=== PATIENT | female | born 1995 | race Caucasian/White ===

== ENCOUNTER → 2021-10-06 10:59 | Outpatient (CLI) | payer OTHER, SELFPAY ==
--- NOTE | 2021-10-06 11:01 | DI.US.S_ITS ---
PROCEDURE: US OB <= 14 WEEKS FETUS INDICATIONS: DATES OUTSIDE/PRIOR DATING DATA: Last menstrual period (LMP): 08/07/2021 LMP-based estimated date of delivery (JOSEPHINE): 05/14/2022 First dating scan (date and location): 10/06/2021 Estimated date of delivery (JOSEPHINE) from first dating scan: 05/19/2022. TECHNIQUE: Real-time scanning was performed of the fetus and maternal pelvic organs, with image documentation. Endovaginal scanning was also performed to better visualize the fetus and maternal ovaries. COMPARISON: None. FINDINGS: Embryo: Single intrauterine gestational sac is seen with fetus and yolk sac seen. heart rate is 171 beats per minute. [place]-rump length measures 1.5 cm. Estimated gestational age is 7 weeks, 6 days. Maternal organs: 1.4 cm corpus luteal cyst is seen in left ovary. 2.9 cm simple cyst is noted in right ovary. No solid appearing ovarian lesion. No ectopic gestational sac. IMPRESSION: 1. Single live intrauterine gestation with fetus and yolk sac seen. heart rate is 171 beats per minute. Estimated gestational age is 7 weeks, 6 days. 2. Corpus luteal cyst in left ovary and simple cyst in right ovary as above. We strive to produce accurate, complete, and clear reports of imaging services. To assist us in improving patient care, this report was composed using standard report templates and voice recognition software. Therefore, it may contain abnormal punctuation, insertions and/or omissions. Occasional wrong-word or sound-alike substitutions may occur. Though we review the report and make efforts to correct it, we do recommend that the report be read carefully in proper context to recognize any text inaccuracies. Dictated by: Keaton Cuenca M.D. on 10/06/2021 at 12:13 Approved by: Keaton Cuenca M.D. on 10/06/2021 at 12:15
[2021-10-06 14:06] LABS: Appearance Urine UA CLEAR; Bilirubin Urine UA NEGATIVE (NEGATIVE); Color Urine UA YELLOW; Glucose Urine UA NEGATIVE (Negative); Ketones Urine UA NEGATIVE (NEGATIVE); Leukocyte Esterase Urine UA NEGATIVE (NEGATIVE); Nitrite Urine UA NEGATIVE (Negative); Occult Blood Urine UA TRACE-LYSED (Negative); Protein Urine UA NEGATIVE (Negative); Urobilinogen Urine UA 0.2 E.U./dL (0.2)
[2021-10-06 14:41] LABS: Add Manual Diff / Slide Review NO; Basophils Absolute Auto 0 /uL (0-100); Basophils Percent Auto 0.2 % (0-2); Eosinophils Absolute Auto 100 /uL (0-450); Eosinophils Percent Auto 0.6 % (2-4); Hematocrit 37.5 % (36-46); Hemoglobin 12.2 g/dL (12.0-16.0); Lymphocytes Absolute Auto 2600 /uL (1100-4500); Lymphocytes Percent Auto 26.5 % (25-40); Mean Corpuscular HGB Conc 32.7 % (30-36); Mean Corpuscular Hemoglobin 26.3 PG (26-34); Mean Corpuscular Volume 80.6 fL (80-100); Monocytes Absolute Auto 500 /uL (0-900); Monocytes Percent Auto 4.9 % (3-14); Neutrophils Absolute Auto 6800 /uL (1500-7000); Neutrophils Percent Auto 67.8 % (50-75); Platelet Count 249 X10^3/uL (150-400); Red Blood Cell Count 4.65 X10^6/uL (4.0-5.2)
[2021-10-07 05:33] LABS: RPR Screen Non Reactive (Non Reactive)
[2021-10-07 09:27] LABS: Varicella IgG Antibody 1019 index (Immune >165)
[2021-10-07 15:37] LABS: Hepatitis B Surface Antigen NEGATIVE s/c (NEGATIVE); Rubella Antibody IgG 2.5 IU/mL (>15)
[2021-10-07 15:38] LABS: HIV 1 & 2 Ab/Ag 4th Gen Combo NEGATIVE (NEGATIVE); Hep C Virus Ab w/Reflex Quant NEGATIVE s/c (NEGATIVE)
== END ==
PROVIDERS: PCP Family Medicine; Referring Provider Family Medicine; Visit Provider Family Medicine
DX: Z36.87 Encounter for antenatal screening for uncertain dates (principal); O34.81 Maternal care for other abnormalities of pelvic organs, first trimester; N83.12 Corpus luteum cyst of left ovary; N83.291 Other ovarian cyst, right side; Z3A.01 Less than 8 weeks gestation of pregnancy
CPT/HCPCS: 36415; 76801; 76817; 80055; 81003; 86787; 86803; 86850; 86900; 86901; 87086; 87389

== ENCOUNTER → 2021-12-20 14:54 | Outpatient (CLI) | payer OTHER, SELFPAY ==
[2021-12-22 20:12] LABS: Calc Gestational Age Ultrasound (.); Inhibin A, Dimeric 74.44 pg/mL (.); Inhibin A, MoM 0.66 (.); Maternal Ethnicity Other (.); Maternal Weight 266 lbs (.); Number of Fetuses No (.); OSBR Risk 1 IN 10000 (.); Results Report (.); Test Results *Screen Negative* (.); hCG, MoM 0.36 (.); hCG, Serum 7429 mIU/mL (.)
== END ==
PROVIDERS: PCP Nurse Practitioner Family; Referring Provider Family Medicine; Visit Provider Family Medicine
DX: Z34.92 Encounter for supervision of normal pregnancy, unspecified, second trimester (principal); Z3A.18 18 weeks gestation of pregnancy
CPT/HCPCS: 36415; 82105; 82677; 84702; 86336

== ENCOUNTER → 2022-01-03 15:14 | Outpatient (CLI) | payer OTHER, SELFPAY ==
--- NOTE | 2022-01-03 15:16 | DI.US.S_ITS ---
PROCEDURE: US OB >= 14 WEEKS FETUS INDICATIONS: ANATOMY SCAN OUTSIDE/PRIOR DATING DATA: Last menstrual period (LMP): August 07, 2021 LMP-based estimated date of delivery (JOSEPHINE): May 14, 2022 First dating scan (date and location): October 16, 2021 Estimated date of delivery (JOSEPHINE) from first dating scan: May 19, 2022 The calculations are made using the ultrasound JOSEPHINE of May 19, 2022 TECHNIQUE: Real-time scanning was performed of the fetus, with image documentation and biometric measurements. Endovaginal scanning: Performed COMPARISON: [facility], OB <= 14 WEEKS FETUS, 10/06/2021, 11:12. FINDINGS: General: A single living intrauterine gestation is present. Presentation: Vertex Placenta: Placental position is anterior, without previa. Amniotic fluid index: 15.7 cm, normal range is 5-24 cm. Single deepest vertical pocket is 4.7 cm. heart rate: 158 beats per minute. Maternal cervical canal: Closed and 5.1 cm long. Normal lower limit is 2.5 cm. biometrics: Biparietal diameter: 21 weeks 6 days Head circumference: 21 weeks 1 day Abdominal circumference: 21 weeks 3 days Femur length: 22 weeks 4 days Clinically estimated gestational age: 20 weeks 4 days Composite gestational age from present scan: 21 weeks 5 days Estimated weight and percentile: 456 grams; 97th percentile Anatomic survey: Neuro: Ventricles are non-dilated at less than 10 mm. Cisterna magna is normal at 3-11 mm. Cerebellum is normal in size and morphology. Nuchal skin fold: Normal at less than 6 mm between 14-21 weeks gestational age. Face: Nose and lips, facial profile are normal. Spine: No evidence for spina bifida. Heart: 4-chambered heart is present, with normal ventricular outflow tracts. Diaphragm: Diaphragm is intact. Stomach: Left-sided stomach is present. Kidneys: No hydronephrosis. Normal is less than 5 mm in 2nd trimester, less than 7 mm in 3rd trimester. Cord: 3-vessel cord has orthotopic insertion. Bladder: Normal in size. Extremities: All 4 extremities identified. IMPRESSION: 1. Single living intrauterine . 2. Estimated weight 456 grams corresponding to the 97th percentile for gestational age concerning for macrosomia. 3. Normal amniotic fluid index 4. Normal anatomic survey. Dictated by: Camilla Hilliard MD, PhD on 01/03/2022 at 16:34 Approved by: Camilla Hilliard MD, PhD on 01/03/2022 at 16:36
== END ==
PROVIDERS: PCP Nurse Practitioner Family; Referring Provider Family Medicine; Visit Provider Family Medicine
DX: Z34.92 Encounter for supervision of normal pregnancy, unspecified, second trimester (principal); Z3A.21 21 weeks gestation of pregnancy
CPT/HCPCS: 76811

== ENCOUNTER → 2022-02-15 08:14 | Outpatient (CLI) | payer OTHER, SELFPAY ==
[2022-02-15 10:44] LABS: Hematocrit 34.7 % (36-46); Hemoglobin 11.7 g/dL (12.0-16.0)
[2022-02-15 10:58] LABS: GTT (PREG) 1 Hour PP 50gm Dose 103 mg/dL (76-139)
== END ==
PROVIDERS: PCP Nurse Practitioner Family; Referring Provider Family Medicine; Visit Provider Family Medicine
DX: Z34.02 Encounter for supervision of normal first pregnancy, second trimester (principal); Z3A.26 26 weeks gestation of pregnancy
CPT/HCPCS: 36415; 82950; 85014; 85018

== ENCOUNTER → 2022-03-24 15:50 | Outpatient (CLI) | payer OTHER, SELFPAY ==
--- NOTE | 2022-03-24 15:52 | DI.US.S_ITS ---
PROCEDURE: US OB FOLLOW UP INDICATIONS: MACROSOMIA OUTSIDE/PRIOR DATING DATA: Last menstrual period (LMP): 08/07/2021 LMP-based estimated date of delivery (JOSEPHINE): 05/14/2022. First dating scan (date and location): 10/06/2021. Estimated date of delivery (JOSEPHINE) from first dating scan: 05/19/2022. The calculations are made using the ultrasound JOSEPHINE of 05/19/2022. TECHNIQUE: Real-time scanning was performed of the fetus, with image documentation and biometric measurements. COMPARISON: [facility], OB <= 14 WEEKS FETUS, 10/06/2021, 11:12. [facility], OB >= 14 WEEKS FETUS, 01/03/2022, 16:23. FINDINGS: General: A single living intrauterine gestation is present. Presentation: Vertex. Placenta: Placental position is anterior , without previa. Amniotic fluid index: 25.7 cm, normal range is 5-24 cm. Single deepest vertical pocket is 7.7 cm. heart rate: 152 beats per minute. Maternal cervical canal: 5.1 cm long. Normal lower limit is 2.5 cm. biometrics: Biparietal diameter: 34 weeks 2 days Head circumference: 35 weeks Abdominal circumference: 34 weeks Femur length: 32 weeks Clinically estimated gestational age: 32 weeks Composite gestational age from present scan: 33 weeks 6 days Estimated weight and percentile: 2224 g; 86 percentile Other: Not applicable. IMPRESSION: 1. Single living IUP redemonstrated and interval growth is upper limits of normal. 2. Amniotic fluid index of 25.7 cm which is greater than the 90th percentile for age. We strive to produce accurate, complete, and clear reports of imaging services. To assist us in improving patient care, this report was composed using standard report templates and voice recognition software. Therefore, it may contain abnormal punctuation, insertions and/or omissions. Occasional wrong-word or sound-alike substitutions may occur. Though we review the report and make efforts to correct it, we do recommend that the report be read carefully in proper context to recognize any text inaccuracies. Dictated by: Robert DENISE Interpreted: Nish Osuna MD on 03/24/2022 at 16:49 Transcribed by: SHAYAN on 03/24/2022 at 16:51 Approved by: Nish Osuna M.D. on 03/24/2022 at 21:33
== END ==
PROVIDERS: PCP Nurse Practitioner Family; Referring Provider Family Medicine; Visit Provider Family Medicine
DX: O36.63X0 Maternal care for excessive fetal growth, third trimester, not applicable or unspecified (principal); Z3A.32 32 weeks gestation of pregnancy
CPT/HCPCS: 76816

== ENCOUNTER 2022-03-29 15:56 | Outpatient (CLI) | payer OTHER, SELFPAY ==
--- NOTE | 2022-03-29 16:02 | DI.US.S_ITS ---
PROCEDURE: US OB BIOPHYSICAL PROFILE INDICATIONS: BPP OUTSIDE/PRIOR DATING DATA: Last menstrual period (LMP): 08/07/2021. LMP-based estimated date of delivery (JOSEPHINE): 05/14/2022. First dating scan (date and location): 10/06/2021. Estimated date of delivery (JOSEPHINE) from first dating scan: 05/19/2022. TECHNIQUE: Real-time scanning was performed of the fetus for biophysical profile, with image documentation. Endovaginal scanning: Not performed COMPARISON: None. FINDINGS: General: A single living intrauterine gestation is present. Presentation: Vertex. Placenta: Placental position is anterior , without previa. Amniotic fluid index: 20.7 cm, normal range is 5-24 cm. Single deepest vertical pocket is 7.2 cm. heart rate: 162 beats per minute. Maternal cervical canal: Not well visualized estimated gestational age: 32 weeks 5 days Biophysical profile: Tone: 2 points. Movement: 2 points. Respiration: 2 points. Largest pocket of fluid: 2 points. IMPRESSION: 1. Single living intrauterine in vertex presentation. 2. Biophysical profile score 8/8. 3. Normal amniotic fluid index of 20.7. We strive to produce accurate, complete, and clear reports of imaging services. To assist us in improving patient care, this report was composed using standard report templates and voice recognition software. Therefore, it may contain abnormal punctuation, insertions and/or omissions. Occasional wrong-word or sound-alike substitutions may occur. Though we review the report and make efforts to correct it, we do recommend that the report be read carefully in proper context to recognize any text inaccuracies. Dictated by: Nish Osuna M.D. on 03/29/2022 at 17:28 Approved by: Nish Osuna M.D. on 03/29/2022 at 17:31
--- NOTE | 2022-03-29 18:16 | PM.OBTRLD ---
Visit Information Visit Information Date of evaluation: 03/29/22 Primary OB Provider: Benita Nickerson Reason for Evaluation: Yes non-stress test non-stress test reason: other (polyhydramnios) Vital Signs Vital Signs: Temperature 36.3? blood pressure 109/60 heart rate 74 PFSH Medical History Nystagmus Family History Father Fatty liver Grandfather Leukemia Melanoma Social History marital status: number of children: 0 household members: spouse lives independently: Yes housing: house pets and animals: Yes (dogs, aware of Toxoplasmosisi) education level: college occupational status: employed current occupational exposures/hazards: No special rylan needs: No seatbelt use: always water heater temp set < 120 deg: Yes working smoke detector in home: Yes fire extinguisher in home: Yes carbon monox detector in home: Yes firearms in home: No do you feel safe at home: Yes Smoking Status: Never smoker second hand exposure: No alcohol intake: former substance use type: does not use during the past year weight has: remained stable well-balanced diet: daily or most days daily servings fruits/ve-4 caffeine: No Type(s) of exercise: walking, regular exercise and weight lifting frequency: 3-4 times per week Evaluation Evaluation Baseline heart rate: 150 Variability: Moderate (11-25) monitor accelerations: Present Monitor Decelerations: Absent Contraction Frequency (minutes): 3 Uterine Contraction Intensity: Mild Status: Category l Diagnosis, Plan/Disposition Final Diagnosis (1) Polyhydramnios affecting in third trimester: Status: Acute (2) 32 weeks gestation of : Status: Acute Plan/Disposition Plan: 26-year-old at 32 weeks gestation with incidental mild polyhydramnios noted on growth ultrasound (TAVARES of 25.7). No known gestational diabetes, 1 hour GTT was 103. NST reactive. BPP 8/8 with TAVARES of 20.7 today. She was having mild contractions every 2-3 minutes on the monitor though feeling none of them. Cervical length 5.1 cm. Follow-up in clinic as scheduled. Since TAVARES has normalized, no need for continued testing. OB Disposition: home
== END 2022-03-29 17:50 | disposition home or self-care (01) ==
LOC: OB 03-31 08:15
PROVIDERS: PCP Nurse Practitioner Family; Referring Provider Family Medicine; Visit Provider Family Medicine
DX: O40.3XX0 Polyhydramnios, third trimester, not applicable or unspecified (principal); Z3A.32 32 weeks gestation of pregnancy
CPT/HCPCS: 59025; 76819; G0378; G0379

== ENCOUNTER → 2022-04-25 15:22 | Outpatient (CLI) | payer OTHER, SELFPAY ==
[2022-04-26 14:04] LABS: Strep Grp B PCR NEG for Grp B Strep
== END ==
PROVIDERS: PCP Nurse Practitioner Family; Visit Provider Family Medicine
DX: Z34.93 Encounter for supervision of normal pregnancy, unspecified, third trimester (principal); Z3A.36 36 weeks gestation of pregnancy
CPT/HCPCS: 87653

== ENCOUNTER → 2022-04-25 15:46 | Outpatient (CLI) | payer OTHER, SELFPAY ==
--- NOTE | 2022-04-25 15:47 | DI.US.S_ITS ---
PROCEDURE: US OB LIMITED INDICATIONS: f/u growth/macrosomia OUTSIDE/PRIOR DATING DATA: Last menstrual period (LMP): 08/07/2021. LMP-based estimated date of delivery (JOSEPHINE): 05/14/2022. First dating scan (date and location): 10/06/2021. Estimated date of delivery (JOSEPHINE) from first dating scan: 05/19/2022. TECHNIQUE: Real-time scanning was performed of the fetus, with image documentation. COMPARISON: None. FINDINGS: A single living intrauterine gestation is present. Presentation: Vertex. Placenta: Placental position is anterior, without previa. Amniotic fluid index: 28.7 cm, normal range is 5-24 cm. Single deepest vertical pocket is 8.7 cm. heart rate: 152 beats per minute. Maternal cervical canal: 5.1 cm long. Normal lower limit is 2.5 cm. BPD: 9.2 cm, 37 week 3 day HC: 33.6 cm, 38 week 3 day AC: 33.9 cm, 37 week 6 day FL: 6.8 cm, 35 week 1 day EFW: 3143 g, 71st percentile Composite estimated gestational age: 37 week 2 day Estimated gestational age from initial scan: 36 week 4 day. IMPRESSION: 1. Single live intrauterine consistent with 37 week 2 day gestation. 2. Polyhydramnios. Amniotic fluid index 28.7 cm Approved by: Glenn Burnette M.D. on 04/25/2022 at 16:51
== END ==
PROVIDERS: PCP Nurse Practitioner Family; Referring Provider Family Medicine; Visit Provider Family Medicine
DX: Z36.88 Encounter for antenatal screening for fetal macrosomia (principal); O40.3XX0 Polyhydramnios, third trimester, not applicable or unspecified; Z3A.37 37 weeks gestation of pregnancy
CPT/HCPCS: 76816; 87653

== ENCOUNTER 2022-04-28 15:02 | Outpatient (CLI) | payer OTHER, SELFPAY ==
--- NOTE | 2022-04-28 15:39 | P.TNLD_ITS ---
Visit Information Visit Information Date of evaluation: 04/28/22 Primary OB Provider: Benita Nickerson Reason for Evaluation: Yes non-stress test non-stress test reason: other (Idiopathic polyhydramnios with TAVARES of 28) Vital Signs Vital Signs: Temperature 36.0? blood pressure 141/90 heart rate 81, repeat blood pressure 135/81 with heart rate of 83 PFSH Medical History Nystagmus Family History Father Fatty liver Grandfather Leukemia Melanoma Social History marital status: number of children: 0 household members: spouse lives independently: Yes housing: house pets and animals: Yes (dogs, aware of Toxoplasmosisi) education level: college occupational status: employed current occupational exposures/hazards: No special rylan needs: No seatbelt use: always water heater temp set < 120 deg: Yes working smoke detector in home: Yes fire extinguisher in home: Yes carbon monox detector in home: Yes firearms in home: No do you feel safe at home: Yes Smoking Status: Never smoker second hand exposure: No alcohol intake: former substance use type: does not use during the past year weight has: remained stable well-balanced diet: daily or most days daily servings fruits/ve-4 caffeine: No Type(s) of exercise: walking, regular exercise and weight lifting frequency: 3-4 times per week Evaluation Evaluation Baseline heart rate: 140 Variability: Moderate (11-25) monitor accelerations: Present Monitor Decelerations: Absent Category of Tracing: Reactive Diagnosis, Plan/Disposition Final Diagnosis (1) 36 weeks gestation of : Status: Acute (2) Polyhydramnios: Status: Acute Plan/Disposition Plan: 26-year-old at 36 weeks gestation with idiopathic polyhydramnios with TAVARES of 28. No gestational diabetes. Last estimated weight at the seventy- first percentile this week. NST reactive. Will continue monitoring with weekly NST and TAVARES. OB Disposition: home
== END 2022-04-28 15:50 | disposition home or self-care (01) ==
LOC: LABOR 15:16 → OB 05-05 10:07
PROVIDERS: PCP Nurse Practitioner Family; Referring Provider Family Medicine; Visit Provider Family Medicine
DX: O40.3XX0 Polyhydramnios, third trimester, not applicable or unspecified (principal); Z3A.36 36 weeks gestation of pregnancy
CPT/HCPCS: 59025; G0378; G0379

== ENCOUNTER 2022-05-05 14:53 | Outpatient (CLI) | payer OTHER, SELFPAY ==
--- NOTE | 2022-05-05 16:15 | PM.OBTRLD ---
Visit Information Visit Information Date of evaluation: 05/05/22 Primary OB Provider: Benita Nickerson Reason for Evaluation: Yes non-stress test non-stress test reason: other (Polyhydramnios) Vital Signs Vital Signs: Temperature 35.8? blood pressure 124/71 rate 74 PFSH Medical History Nystagmus Family History Father Fatty liver Grandfather Leukemia Melanoma Social History marital status: number of children: 0 household members: spouse lives independently: Yes housing: house pets and animals: Yes (dogs, aware of Toxoplasmosisi) education level: college occupational status: employed current occupational exposures/hazards: No special rylan needs: No seatbelt use: always water heater temp set < 120 deg: Yes working smoke detector in home: Yes fire extinguisher in home: Yes carbon monox detector in home: Yes firearms in home: No do you feel safe at home: Yes Smoking Status: Never smoker second hand exposure: No alcohol intake: former substance use type: does not use during the past year weight has: remained stable well-balanced diet: daily or most days daily servings fruits/ve-4 caffeine: No Type(s) of exercise: walking, regular exercise and weight lifting frequency: 3-4 times per week Evaluation Evaluation Baseline heart rate: 130 Variability: Moderate (11-25) monitor accelerations: Present Monitor Decelerations: Absent Contraction Frequency (minutes): 4 Uterine Contraction Intensity: Mild Category of Tracing: Reactive Diagnosis, Plan/Disposition Final Diagnosis (1) Polyhydramnios: Status: Acute (2) 37 weeks gestation of : Status: Acute Plan/Disposition Plan: 26-year-old at 37 weeks gestation with mild polyhydramnios. NST reactive. TAVARES to follow NST. Will continue weekly NST and TAVARES.
== END 2022-05-05 15:50 | disposition home or self-care (01) ==
LOC: LABOR 15:53 → OB 05-10 14:14
PROVIDERS: PCP Nurse Practitioner Family; Referring Provider Family Medicine; Visit Provider Family Medicine
DX: O40.3XX0 Polyhydramnios, third trimester, not applicable or unspecified (principal); Z3A.37 37 weeks gestation of pregnancy
CPT/HCPCS: 59025; 76815; G0378; G0379

== ENCOUNTER → 2022-05-05 16:49 | Outpatient (CLI) | payer OTHER, SELFPAY ==
--- NOTE | 2022-05-05 16:50 | DI.US.S_ITS ---
PROCEDURE: US OB LIMITED INDICATIONS: TAVARES OUTSIDE/PRIOR DATING DATA: Last menstrual period (LMP): 08/07/2021. LMP-based estimated date of delivery (JOSEPHINE): 05/14/2022. First dating scan (date and location): 10/06/2021. Estimated date of delivery (JOSEPHINE) from first dating scan: 05/19/2022. TECHNIQUE: Real-time scanning was performed of the fetus, with image documentation. COMPARISON: [facility], OB LIMITED, 04/25/2022, 16:06. FINDINGS: A single living intrauterine gestation is present. Presentation: Vertex. Placenta: Placental position is anterior, without previa. Amniotic fluid index: 16.9 cm, normal range is 5-24 cm. Single deepest vertical pocket is 5.7 cm. heart rate: 144 beats per minute. Maternal cervical canal: Not well seen Estimated gestational age from initial scan: 38 weeks 0 days. IMPRESSION: Single live intrauterine with ultrasound gestational age today of 30 weeks 0 days. TAVARES is within normal limits. Dictated by: Clary Rahman M.D. on 05/06/2022 at 11:11 Approved by: Clary Rahman M.D. on 05/06/2022 at 11:13
== END ==
PROVIDERS: PCP Nurse Practitioner Family; Referring Provider Family Medicine; Visit Provider Family Medicine
DX: O40.3XX0 Polyhydramnios, third trimester, not applicable or unspecified (principal); Z3A.30 30 weeks gestation of pregnancy
CPT/HCPCS: 76815

== ENCOUNTER → 2022-05-09 13:27 | Outpatient (CLI) | payer OTHER, SELFPAY ==
--- NOTE | 2022-05-09 13:28 | DI.US.S_ITS ---
PROCEDURE: US OB LIMITED INDICATIONS: TAVARES OUTSIDE/PRIOR DATING DATA: Last menstrual period (LMP): 08/07/2021. LMP-based estimated date of delivery (JOSEPHINE): 05/14/2022. First dating scan (date and location): 10/06/2021. Estimated date of delivery (JOSEPHINE) from first dating scan: 05/19/2022. TECHNIQUE: Real-time scanning was performed of the fetus, with image documentation and biometric measurements. Biophysical profile was also obtained. Endovaginal scanning: No COMPARISON: [facility], OB LIMITED, 05/05/2022, 16:55. FINDINGS: General: A single living intrauterine gestation is present. Presentation: Vertex. Placenta: Placental position is anterior , without previa. Amniotic fluid index: 22.7 cm heart rate: 140 beats per minute. IMPRESSION: 1. Single living intrauterine gestation. 2. Polyhydramnios. We strive to produce accurate, complete, and clear reports of imaging services. To assist us in improving patient care, this report was composed using standard report templates and voice recognition software. Therefore, it may contain abnormal punctuation, insertions and/or omissions. Occasional wrong-word or sound-alike substitutions may occur. Though we review the report and make efforts to correct it, we do recommend that the report be read carefully in proper context to recognize any text inaccuracies. Dictated by: Marlen Mena M.D. on 05/09/2022 at 14:21 Transcribed by: STEPHAN on 05/09/2022 at 14:23 Approved by: Marlen Mena M.D. on 05/09/2022 at 17:02
== END ==
PROVIDERS: PCP Nurse Practitioner Family; Referring Provider Family Medicine; Visit Provider Family Medicine
DX: Z3A.38 38 weeks gestation of pregnancy (principal); O40.3XX0 Polyhydramnios, third trimester, not applicable or unspecified; Z36.89 Encounter for other specified antenatal screening
CPT/HCPCS: 76815; 76819

== ENCOUNTER 2022-05-12 16:12 | Outpatient (CLI) | payer OTHER, SELFPAY ==
--- NOTE | 2022-05-12 17:14 | PM.OBTRLD ---
Visit Information Visit Information Date of evaluation: 05/12/22 Primary OB Provider: Benita Nickerson Reason for Evaluation: Yes non-stress test non-stress test reason: other (Polyhydramnios) Vital Signs Vital Signs: Temperature 36.1 blood pressure 136/93 heart rate 82 repeat blood pressure 124/81 heart rate 80 Per RN, initial blood pressure was taken with the wrong size cuff [facility] Medical History Nystagmus Family History Father Fatty liver Grandfather Leukemia Melanoma Social History marital status: number of children: 0 household members: spouse lives independently: Yes housing: house pets and animals: Yes (dogs, aware of Toxoplasmosisi) education level: college occupational status: employed current occupational exposures/hazards: No special rylan needs: No seatbelt use: always water heater temp set < 120 deg: Yes working smoke detector in home: Yes fire extinguisher in home: Yes carbon monox detector in home: Yes firearms in home: No do you feel safe at home: Yes Smoking Status: Never smoker second hand exposure: No alcohol intake: former substance use type: does not use during the past year weight has: remained stable well-balanced diet: daily or most days daily servings fruits/ve-4 caffeine: No Type(s) of exercise: walking, regular exercise and weight lifting frequency: 3-4 times per week Evaluation Evaluation Baseline heart rate: 130 Variability: Moderate (11-25) monitor accelerations: Present Monitor Decelerations: Absent Uterine Contraction Intensity: Mild Category of Tracing: Reactive Diagnosis, Plan/Disposition Final Diagnosis (1) 38 weeks gestation of : Status: Acute (2) Polyhydramnios: Status: Acute Plan/Disposition Plan: 26-year-old at 38 weeks and 4 days gestation here for NST due to polyhydramnios. TAVARES has been up and down each week, some weeks abnormal and others normal. Last TAVARES was 22.7. Will continue weekly NST and TAVARES. OB Disposition: home
== END 2022-05-12 17:00 | disposition home or self-care (01) ==
LOC: LABOR 17:39 → OB 05-17 13:01
PROVIDERS: PCP Nurse Practitioner Family; Referring Provider Family Medicine; Visit Provider Family Medicine
DX: O40.3XX0 Polyhydramnios, third trimester, not applicable or unspecified (principal); Z3A.38 38 weeks gestation of pregnancy
CPT/HCPCS: 59025; G0378; G0379

== ENCOUNTER 2022-05-16 15:28 | Outpatient (CLI) | payer OTHER, SELFPAY ==
[2022-05-16 17:13] LABS: Add Manual Diff / Slide Review NO; Basophils Absolute Auto 0 /uL (0-100); Basophils Percent Auto 0.1 % (0-2); Eosinophils Absolute Auto 0 /uL (0-450); Eosinophils Percent Auto 0.3 % (2-4); Hematocrit 37.5 % (36-46); Hemoglobin 12.5 g/dL (12.0-16.0); Lymphocytes Absolute Auto 2400 /uL (1100-4500); Mean Corpuscular HGB Conc 33.2 % (30-36); Mean Corpuscular Hemoglobin 26.5 PG (26-34); Mean Corpuscular Volume 79.8 fL (80-100); Monocytes Absolute Auto 600 /uL (0-900); Monocytes Percent Auto 5.7 % (3-14); Neutrophils Absolute Auto 7800 /uL (1500-7000); Neutrophils Percent Auto 71.9 % (50-75); Platelet Count 192 X10^3/uL (150-400); Red Cell Distribution Width 15.5 % (11.6-14.8); White Blood Cell Count 10.8 X10^3/uL (4.5-11.0)
--- NOTE | 2022-05-16 17:25 | PM.OBTRLD ---
Visit Information Visit Information Date of evaluation: 05/16/22 Primary OB Provider: Benita Nickerson Reason for Evaluation: Yes non-stress test non-stress test reason: hypertension/pre-eclampsia Comments/Additional reasons for admission: 26 year at 39 weeks and 1 day sent to the center for serial blood pressures and labs due to elevated blood pressure. Denies headaches vision changes, right upper quadrant pain or edema. Vital Signs Vital Signs: Temperature 36.3? blood pressure 128/79 heart rate 77, blood pressure 127/74 heart rate 77, blood pressure 135/74 heart rate 73 [facility] Medical History Nystagmus Family History Father Fatty liver Grandfather Leukemia Melanoma Social History marital status: number of children: 0 household members: spouse lives independently: Yes housing: house pets and animals: Yes (dogs, aware of Toxoplasmosisi) education level: college occupational status: employed current occupational exposures/hazards: No special rylan needs: No seatbelt use: always water heater temp set < 120 deg: Yes working smoke detector in home: Yes fire extinguisher in home: Yes carbon monox detector in home: Yes firearms in home: No do you feel safe at home: Yes Smoking Status: Never smoker second hand exposure: No alcohol intake: former substance use type: does not use during the past year weight has: remained stable well-balanced diet: daily or most days daily servings fruits/ve-4 caffeine: No Type(s) of exercise: walking, regular exercise and weight lifting frequency: 3-4 times per week Objective Labs Result Diagrams: 05/16/22 16:15 05/16/22 16:15 Evaluation Evaluation Baseline heart rate: 130 Variability: Moderate (11-25) monitor accelerations: Present Monitor Decelerations: Absent Category of Tracing: Reactive Diagnosis, Plan/Disposition Final Diagnosis (1) 39 weeks gestation of : Status: Acute Plan/Disposition Plan: 26-year-old at 39 weeks and 1 day gestation. She has been followed for waxing and waning polyhydramnios, last TAVARES was high normal. Today blood pressures were elevated in clinic then normal in the center. Labs overall reassuring with normal CBC and CMP however mildly elevated protein creatinine ratio at 0.33. She is scheduled for induction in 2 days and well-versed in the symptoms of preeclampsia. Will plan for induction in 2 days though she will return sooner if needed. OB Disposition: home
[2022-05-16 17:50] LABS: Alanine Aminotransferase 18 IU/L (<35); Albumin 3.5 g/dL (3.5-5.0); Albumin Globulin Ratio 1.1 (1.0-2.8); Alkaline Phosphatase 143 U/L (38-126); Aspartate Aminotransferase 24 IU/L (14-36); Bilirubin Total 0.2 mg/dL (0.2-1.3); Blood Urea Nitrogen 13 mg/dL (7-17); Calcium 8.8 mg/dL (8.4-10.2); Carbon Dioxide 19 mmol/L (22-32); Chloride 104 mmol/L (98-107); Estimated Glomerular Filt Rate > 60 mL/min (>60); Globulin 3.1 g/dL (1.7-4.1); Glucose 80 mg/dL (70-100); HEMOLYSIS < 15 (0-50); Sodium 133 mmol/L (137-145); Total Protein 6.6 g/dL (6.3-8.2)
[2022-05-16 17:51] LABS: Creatinine Urine Random 56.3 mg/dL; Protein (Total) Urine Random 19 mg/dL (0-12); Protein Creatinine Ratio Urine 0.33 GRAM/24H
== END 2022-05-16 18:00 | disposition home or self-care (01) ==
LOC: LABOR 18:34 → OB 05-19 11:26
PROVIDERS: PCP Nurse Practitioner Family; Referring Provider Family Medicine; Visit Provider Family Medicine
DX: O26.893 Other specified pregnancy related conditions, third trimester (principal); R03.0 Elevated blood-pressure reading, without diagnosis of hypertension; Z3A.39 39 weeks gestation of pregnancy
CPT/HCPCS: 59025; 59050; 80053; 82570; 84156; 85025; G0378; G0379

== ENCOUNTER 2022-05-18 19:08 | Observation (INO) | payer OTHER, SELFPAY ==
[2022-05-18 21:19] LABS: Add Manual Diff / Slide Review NO; Basophils Absolute Auto 0 /uL (0-100); Basophils Percent Auto 0.2 % (0-2); Eosinophils Absolute Auto 0 /uL (0-450); Eosinophils Percent Auto 0.2 % (2-4); Hematocrit 37.6 % (36-46); Hemoglobin 12.2 g/dL (12.0-16.0); Lymphocytes Absolute Auto 2700 /uL (1100-4500); Lymphocytes Percent Auto 21.5 % (25-40); Mean Corpuscular HGB Conc 32.5 % (30-36); Monocytes Absolute Auto 800 /uL (0-900); Neutrophils Absolute Auto 9000 /uL (1500-7000); Neutrophils Percent Auto 72.1 % (50-75); Platelet Count 193 X10^3/uL (150-400); Red Cell Distribution Width 15.4 % (11.6-14.8); White Blood Cell Count 12.5 X10^3/uL (4.5-11.0)
[2022-05-18 21:36] LABS: COVID19 -Nasal RAPID Negative (Negative)
== END 2022-05-18 23:00 | disposition home or self-care (01) ==
LOC: LABOR 19:12
PROVIDERS: Admitting Provider Family Medicine; PCP Nurse Practitioner Family; Referring Provider Family Medicine; Visit Provider Family Medicine
DX: O13.3 Gestational [pregnancy-induced] hypertension without significant proteinuria, third trimester (principal); O40.3XX0 Polyhydramnios, third trimester, not applicable or unspecified; Z3A.39 39 weeks gestation of pregnancy; Z20.822 Contact with and (suspected) exposure to COVID-19
CPT/HCPCS: 59025; 85025; 86850; 86900; 86901; 87635; C9803; G0378; G0379

== ENCOUNTER 2022-05-19 12:05 | Inpatient (IN) | payer OTHER, SELFPAY ==
--- NOTE | 2022-05-19 13:11 | P.HPOB_ITS ---
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 had been uncomplicated until ultrasound at 34 weeks done for growth was significant for TAVARES of 25.7 with EFW 86%. 1 hr GTT was normal at 26 weeks, reassuring against GDM. She had weekly ultrasounds after 34 weeks, some with mild polyhydramnios and some normal. Blood pressures this last week were elevated with normal CBC and CMP though urine protein creatinine level of 0.33. She has been without edema, BELLE, RUQ pain or vision changes. She came in last night for Cervical ripening however was sent home due to other events in the center. Today she feels well. Denies contractions, leaking or bleeding and reports good movement. care: good care, initiated at week # (10), number of visits (13) and pounds weight gain (5) Dating criteria OB: based on 1st trimester US only Ultrasounds: normal 1st trimester US and normal mid trimester US Obstetrical complications: gestational hypertension Medical complications OB: none Preadmission Labs Last OB Lab Results: Blood Type A Positive 05/18/22 20:45 Antibody Screen Negative 05/18/22 20:45 Hematocrit 37.6 % (36-46) 05/18/22 20:45 Hemoglobin 12.2 g/dL (12.0-16.0) 05/18/22 20:45 Hepatitis B Surface Antigen Negative s/c (NEGATIVE) 10/06/21 12 :34 Hepatitis C Antibody Negative s/c (NEGATIVE) 10/06/21 12:34 Rubella Antibody 2.5 IU/mL (>15) L 10/06/21 12:34 Varicella-Zoster IgG Antibody 1019 index (Immune >165) 10/06/21 12:34 Glucose 1 Hour 103 mg/dL (76-139) 02/15/22 09:59 Group B Streptococcus (PCR) Neg for grp b strep 04/25/22 15:22 -: Urine: negative Genetic Screens: Quad screen: Normal External Labs -: Urine: negative Evaluation Evaluation Baseline heart rate: 150 Variability: Moderate (11-25) monitor accelerations: Present Monitor Decelerations: Absent Category of Tracing: Reactive Dilation: 1-2 cm Effacement: 60-70% station: -2 Position of cervix: posterior Consistency: soft Cuevas score: 6 PFSH Medical History Nystagmus Family History Father Fatty liver Grandfather Leukemia Melanoma Social History marital status: number of children: 0 household members: spouse lives independently: Yes housing: house pets and animals: Yes (dogs, aware of Toxoplasmosisi) education level: college occupational status: employed current occupational exposures/hazards: No special rylan needs: No seatbelt use: always water heater temp set < 120 deg: Yes working smoke detector in home: Yes fire extinguisher in home: Yes carbon monox detector in home: Yes firearms in home: No do you feel safe at home: Yes Smoking Status: Never smoker second hand exposure: No alcohol intake: former substance use type: does not use during the past year weight has: remained stable well-balanced diet: daily or most days daily servings fruits/ve-4 caffeine: No Type(s) of exercise: walking, regular exercise and weight lifting frequency: 3-4 times per week Meds Home Medications and Allergies Home Medications Medication Instructions Recorded Confirmed Type prenat.vits,raya,ssm-mjns-hnhor 1 tab PO DAILY 10/11/21 05/19/22 History double electric breast pump and #1 ea 05/11/22 05/19/22 Rx supplies Allergies Allergy/AdvReac Type Severity Reaction Status Date / Time No Known Drug Allergies Allergy Verified 05/16/22 14:54 Review of Systems Review of Systems ROS: Yes All systems reviewed with the patient and are negative except as otherwise documented OB Exam Narrative Exam Narrative: Temperature 36.2? blood pressure 140/72 heart rate 91 repeat blood pressure 133/84 HENMT Head: normal to inspection Eyes General: appearance normal, both eyes and all related structures Resp Effort & Inspection: normal respiratory effort Auscultation: clear to auscultation bilaterally Cardio Rate: regular rate Rhythm: regular rhythm Extremities Lower extremity: Yes normal to inspection; No edema Presentation: vertex Estimated Weight (lbs): 8 Assessment and Plan Assessment and Plan Assessment and Plan narrative: 26-year-old at 39 weeks and 4 days gestation for intermittently mildly elevated blood pressures, mildly elevated protein creatinine ratio of 0.33 as well as waxing and waning polyhydramnios. No known gestational diabetes this with normal 1 hour GTT. She is without symptoms of preeclampsia and blood pressure normal range today without medication. Last estimated weight was at the 86th percentile at 34 weeks. Cuevas score of 6. Plan Cervidil per protocol, reassess need for Pitocin in 12 hours unless she goes into labor spontaneously Epidural upon request Anticipate
[2022-05-19] MEDS: DINOPROSTONE VAG (CERVIDIL) 10 MG VAG (14:15)
[2022-05-19 14:48] VITALS: BP 134/84
--- NOTE | 2022-05-19 20:54 | PM.OBPNLAB ---
Date/Time Date Patient Seen: 05/19/22 Time Patient Seen: 20:40 Pain Control Pain control: tolerating well Comments: She can feel contractions but denies pain. Contractions Monitor mode: External Contraction frequency (min): 6 Status status: Category l Heart Rate Baseline: 140 Monitor Accelerations: Present Monitor Decelerations: Absent Monitor Variability: Moderate Assessment and Plan Assessment: induction ongoing Plan: continuous present management Comments: 26-year-old at 39 weeks and 4 days gestation undergoing induction for intermittently mildly elevated blood pressures and mildly elevated protein creatinine ratio of 0.33 concerning for pre-eclampsia without severe features. Cervidil was placed at 2 PM. She is doris irregularly though not painfully. Plan to remove Cervidil at 2 AM unless removal is indicated soon. Will plan to start pitocin at 6 AM.
[2022-05-20] MEDS: OXYTOCIN PREMIX 30 UNIT/500 ML PLAST..BAG IV (05:53)
--- NOTE | 2022-05-20 06:11 | PM.OBPNLAB ---
Date/Time Date Patient Seen: 05/20/22 Time Patient Seen: 05:50 Pain Control Pain control: tolerating well Comments: Cervidil removed at 2 AM. She can feel contractions but is not uncomfortable. Pelvic Exam Dilation (cm): 3 Effacement (%): 80 station: -2 Amniotic membrane status: Intact Contractions Monitor mode: External Contraction pattern: Irregular Status status: Category l Heart Rate Baseline: 130 Monitor Accelerations: Present Monitor Decelerations: Absent Monitor Variability: Moderate Assessment and Plan Assessment: induction ongoing Comments: Cervidal removed after 12 hours, Cuevas score now 8. Will begin pitocin.
[2022-05-20] MEDS: LACTATED RINGERS 1,000 ML 100 ML IV ×2 (12:00→17:25)
--- NOTE | 2022-05-20 13:24 | PM.OBPNLAB ---
Date/Time Date Patient Seen: 05/20/22 Time Patient Seen: 13:00 Pain Control Pain control: epidural Comments: Comfortable with epidural Pelvic Exam Dilation (cm): 8 Effacement (%): 100 station: -2 Amniotic membrane status: Ruptured (AROM small amount of clear fluid) Contractions Monitor mode: External Pitocin rate (mU/min): 12 Contraction frequency (min): 3 Contraction pattern: Regular Status status: Category l Heart Rate Baseline: 130 Monitor Accelerations: Present Monitor Decelerations: Absent and Early Monitor Variability: Minimal Assessment and Plan Assessment: active labor Plan: continuous present management Comments: 26 year old at 39+5 weeks now in active labor and comfortable with epidural. AROM with small amount of clear fluid. Continue peanut ball to help with descent of head.
[2022-05-20] MEDS: FENT 2MCG/ML BUPIV 0.125% EPI 200 MCG/100 ML PLAST..BAG 6 MCG EPIDURAL (17:24)
--- NOTE | 2022-05-20 18:32 | PM.OBPRVD ---
Labor & Delivery Delivery date: 05/20/22 Cervical ripening method: per Cervidil protocol Induction method: per pitocin protocol Delivery augmentation: rupture of membranes Delivery monitor: external FHT Route of delivery: L&D Laceration Description: Perineal - 2nd Degree Delivery repair: chromic Estimated blood loss (mL): 200 Anesthesia Type: Epidural Narrative: Patient is a 26-year-old at 39 weeks and 5 days gestation who gave on 05/20/22 at 1807. JOSEPHINE: 08/22/21 Hospital problems: 39 weeks of Spontaneous vaginal delivery STAGE I: Labor Patient was brought in for induction and received Cervidil followed by piticon. She went on to receive an epidural with excellent pain control. Artificial rupture of membranes performed at 1310 with clear fluid. She was complete at 1624 though without an urge to push. STAGE II: Delivery Patient was complete but labored down due to Dr. Nickerson being in a . Once Dr. Nickerson returned, she pushed twice and delivered a vigorous female infant at 1807. Infant was vertex and [place]. There was a nuchal cord which delivered through. [place] was immediately placed on mother's abdomen. Cord was clamped and cut after 1 minute delay. No resuscitation of the required. scores were 9 at one minute and 9 at five minutes. STAGE III: Placenta/Cord Placenta delivered at 1813 after active management and appeared intact with a 3 vessel cord. A second degree perineal laceration was repaired in the usual fashion with 3-O chromic with good hemostasis. Fundus firm after delivery and hemostasis assured. Repair: EBL: 200 mL. Needle and sponge counts were correct. The vagina was inspected and no items were left in situ. Patient was doing well with [place], her and and mother at bedside. [place] Baby 1: gender: Female Presentation: vertex Position: Left Occiput Anterior Placenta delivery description: Spontaneous Cord Vessel Description: 3 Vessels and Nuchal Cord score (1 min): 9 score (5 min): 9 Plan for aftercare: Routine care
[2022-05-20] MEDS: DERMOPLAST SPRAY 20% 60 ML 1 SPRAY TOP (21:13)
[2022-05-20] MEDS: IBUPROFEN 600 MG TABLET PO (21:14)
[2022-05-20] MEDS: ACETAMINOPHEN 325 MG TABLET 650 MG PO (21:14)
[2022-05-20] MEDS: LIDOCAINE 1% 20 ML (23:15)
[2022-05-20 23:52] LABS: Add Manual Diff / Slide Review NO; Basophils Absolute Auto 100 /uL (0-100); Basophils Percent Auto 0.4 % (0-2); Eosinophils Absolute Auto 0 /uL (0-450); Eosinophils Percent Auto 0.1 % (2-4); Hematocrit 31.1 % (36-46); Hemoglobin 10.4 g/dL (12.0-16.0); Lymphocytes Absolute Auto 2300 /uL (1100-4500); Lymphocytes Percent Auto 16.6 % (25-40); Mean Corpuscular HGB Conc 33.4 % (30-36); Mean Corpuscular Hemoglobin 26.7 PG (26-34); Monocytes Absolute Auto 900 /uL (0-900); Monocytes Percent Auto 6.3 % (3-14); Neutrophils Absolute Auto 10700 /uL (1500-7000); Neutrophils Percent Auto 76.6 % (50-75); Platelet Count 173 X10^3/uL (150-400); Red Blood Cell Count 3.89 X10^6/uL (4.0-5.2); Red Cell Distribution Width 15.4 % (11.6-14.8)
--- NOTE | 2022-05-21 00:47 | PM.EVENT ---
Event Note Date Patient Seen: 05/20/22 Time Patient Seen: 23:00 Event Note (Rapid Response, Code, or fall): I was called by the center due to active bleeding in the patient from a right labial laceration (not present at delivery). Patient had been up and felt as though she needed to pass a clot. She felt a gush of blood and thought the clot had passed then noted significant bleeding on her pad. RN came to the room and found patient bleeding briskly from the labia. She was holding pressure when I arrived. There was moderate edema and evolving hematoma of the right labia with a split which was actively bleeding. The area was cleansed with betadine and 1% lidocaine injected. 3-O chromic was used in a figure of 8 x2 to control bleeding. The same suture was then used in a running fashion to close the split. After holding pressure, bleeding stopped however the hemotoma continued to rapidly expand beneath the skin. Dr. Van was then called to evaluate the patient. The area was again inspected and a large gush of blood came from the hematoma. The hematoma had more than doubled in size and Dr. Van recommended taking the patient to the OR for evacuation of the clot and control of bleeding. Risks and benefits of surgery were reviewed and consent signed. Patient was accepted of blood products if indicated. Vitals remained stable and patient denied dizziness, lightheadedness or nausea. She was given a 1 L bolus of LR. QBL prior to transfer to the OR was 1359 ml after weighing all laps and pads. Stat CBC, PT/INR and fibrinogen ordered.
[2022-05-21] MEDS: CEFAZOLIN 2 GM/100 ML PREMIX 100 ML IV ×2 (01:04→01:40)
[2022-05-21 01:10] LABS: Prothrombin Time 11.3 SECONDS (10.1-12.7)
[2022-05-21] MEDS: TRANEXAMIC ACID 1,000 MG in SODIUM CHLORIDE 0.9% 100 ML 200 MG IV (01:15)
[2022-05-21 01:22] LABS: Fibrinogen 378 mg/dL (211-428)
--- NOTE | 2022-05-21 01:55 | SUR.OPER ---
Lithotomy on padded OR bed, head on pillow, arms secured on padded arm boards at <90 degrees abduction. Legs secured in padded yellow fins stirrups.
[2022-05-21 02:32] VITALS: BP 119/89; PULSE 103; PULSE 99; RESP 17; RESP 25; TEMP 36.2; O2SAT 98
[2022-05-21 02:38] VITALS: BP 119/89; PULSE 107; RESP 15; TEMP 36.2
--- NOTE | 2022-05-21 02:38 | P.OP_ITS ---
Operative Date/Time/Diagnoses Date of procedure: 05/21/22 Time of procedure: 02:38 Pre-op diagnosis: Right vulvar hematoma Post-op diagnosis: same Procedure & Clinicians Procedure: Procedures Operation Date: 05/21/22 01:30 Actual Procedure Side Surgeon p with ligation of bleeding and placement of drain Amber Van MD Indications: Expanding right vulvar hematoma Surgeon: Amber Van [employer] Fabricator: Benita Nickerson Anesthesia Type: General Operative Notes Findings: 20 cm x 10 cm right vulvar hematoma Bright red bleeding coming from deep in the cavity close to the vaginal wall Closure Type: not applicable Specimen(s): none Applied: catheter (Mendez catheter placed) and drain(s) (22 gauge Mendez catheter with 20 cc in the bulb placed into the deep space) Estimated blood loss (mL): 554 Blood products transfused: packed red blood cells (2 units) Procedure in detail: After informed consent was obtained, the patient was taken to the operating room where she was placed in the dorsal supine position. After adequate general endotracheal anesthesia was achieved, she was placed in the dorsal lithotomy position, and prepped and draped in the usual sterile fashion. A time-out was performed. A Mendez catheter was placed into the bladder. There was a 20 cm x 10 cm hematoma on the right labia minora. The space was probed through the opening in the skin and approximately 190 cc of clot were evacuated, including small amount of clot on the labia minora near the clitoris on the right side. There was some bright red bleeding from deep in the wound. Two [id number]-[id number] sutures were placed and there was additional bleeding. A decision was made to proceed with pressure. This was held for 10 minutes. The bleeding was down to a small ooze. A 22 gauge Mendez catheter was placed into the deep space and the bulb filled with 20 cc of sterile saline. Sutures were placed on the labia minora with 2 0 nylon to close the skin and hold the Mendez bulb in place. The Mendez was connected to a grenade. The area was observed for 30 minutes and there was no new bright red bleeding. Sponge, lap, and instrument counts were correct x2. The patient tolerated the procedure well, and was taken to PACU in stable condition. Estimated blood loss in the operating room was 189 cc of clot removed from the wound. 50 cc of new bleeding. Complications: none Post-operative Condition: stable Disposition: PACU Plan for aftercare: To the center after recovery
[2022-05-21 02:47] VITALS: BP 139/99; PULSE 99; RESP 25; O2SAT 97
[2022-05-21 02:52] VITALS: BP 145/100; PULSE 86; RESP 11; TEMP 36.3
--- NOTE | 2022-05-21 02:52 | SUR.PHASEI ---
Surgical site dry and intact; no active bleeding noted. VSS: no output in drain noted on arrival to PACU. Second unit of blood infusing without difficulty.
[2022-05-21 02:57] VITALS: BP 155/97; PULSE 94; RESP 19
[2022-05-21] MEDS: LACTATED RINGERS 1,000 ML 42 ML IV (03:01)
[2022-05-21] MEDS: ACETAMINOPHEN 325 MG TABLET 650 MG PO ×3 (04:05→19:35)
[2022-05-21 05:37] LABS: Hemoglobin 10.3 g/dL (12.0-16.0)
[2022-05-21 05:38] LABS: Hematocrit 30.9 % (36-46)
[2022-05-21] MEDS: OXYCODONE IR 5 MG TABLET PO ×5 (07:35→23:58)
[2022-05-21] MEDS: LANOLIN OINT 7 GM 1 APPLIC TOP (07:35)
[2022-05-21 10:09] LABS: Add Manual Diff / Slide Review NO; Basophils Absolute Auto 100 /uL (0-100); Basophils Percent Auto 0.5 % (0-2); Eosinophils Absolute Auto 0 /uL (0-450); Eosinophils Percent Auto 0.2 % (2-4); Hematocrit 29.3 % (36-46); Hemoglobin 9.8 g/dL (12.0-16.0); Lymphocytes Absolute Auto 2700 /uL (1100-4500); Lymphocytes Percent Auto 21.1 % (25-40); Mean Corpuscular HGB Conc 33.5 % (30-36); Mean Corpuscular Hemoglobin 27.3 PG (26-34); Mean Corpuscular Volume 81.5 fL (80-100); Monocytes Absolute Auto 600 /uL (0-900); Monocytes Percent Auto 4.5 % (3-14); Neutrophils Absolute Auto 9500 /uL (1500-7000); Neutrophils Percent Auto 73.7 % (50-75); Platelet Count 159 X10^3/uL (150-400); Red Blood Cell Count 3.59 X10^6/uL (4.0-5.2); Red Cell Distribution Width 15.7 % (11.6-14.8); White Blood Cell Count 12.9 X10^3/uL (4.5-11.0)
--- NOTE | 2022-05-21 11:07 | P.PNOB_ITS ---
Subjective - OB Subjective Patient comments: no complaints, pain well controlled and flatus present baby status: doing well and nursing well Narrative: Patient had a complicated night with a rapidly enlarging right labial hematoma requiring evacuation and drain placement with Dr. Van overnight. She had over 2 L of blood loss and received 1 unit of packed red blood cells in the operating room. She is sore but otherwise doing well. Denies lightheadedness, dizziness or nausea. She is passing flatus and is still NPO. is well without issues. Exam Vital Signs (past 8 hours): Oxygen Delivery Method Room Air Temperature 97.4? blood pressure 90/50 rate 95 respirations 20 Narrative Exam Narrative: General: Awake and alert, no acute distress. Resting comfortably in bed. HEENT: NCAT, EOMI, moist oral mucosa CV: Regular rate and rhythm Lungs: CTAB, no wheezes, rales, or rhonchi Abdomen: Soft, nontender; bowel tones active; uterus firm 1 cm below umbilicus : Edema labia hematoma drain place. Mendez catheter place. Extremities: Warm, trace edema bilaterally Objective Labs Result Diagrams: 05/21/22 09:55 Labs: Laboratory Results - last 24 hr 05/19/22 05/20/22 05/21/22 16:44 23:45 00:53 WBC 14.0 H RBC 3.89 L Hgb 10.4 L Hct 31.1 L MCV 80.0 MCH 26.7 MCHC 33.4 RDW 15.4 H Plt Count 173 Neut % (Auto) 76.6 H Lymph % (Auto) 16.6 L [place] % (Auto) 6.3 Eos % (Auto) 0.1 L Baso % (Auto) 0.4 Neut # (Auto) 53478 H Lymph # (Auto) 2300 [place] # (Auto) 900 Eos # (Auto) 0 Baso # (Auto) 100 PT 11.3 INR 1.0 Fibrinogen 378 Blood Type A Positive Antibody Screen Negative Crossmatch See Detail 05/21/22 05/21/22 05:10 09:55 WBC 12.9 H RBC 3.59 L Hgb 10.3 L 9.8 L Hct 30.9 L 29.3 L MCV 81.5 MCH 27.3 MCHC 33.5 RDW 15.7 H Plt Count 159 Neut % (Auto) 73.7 Lymph % (Auto) 21.1 L [place] % (Auto) 4.5 Eos % (Auto) 0.2 L Baso % (Auto) 0.5 Neut # (Auto) 9500 H Lymph # (Auto) 2700 [place] # (Auto) 600 Eos # (Auto) 0 Baso # (Auto) 100 PT INR Fibrinogen Blood Type Antibody Screen Crossmatch Assessment & Plan Assessment and Plan (1) Hematoma of labia majora: Status: Acute (2) 39 weeks gestation of : Status: Acute (3) Spontaneous vaginal delivery: Status: Acute Assessment and plan: 26-year-old G1 now P1 after uncomplicated vaginal delivery however course complicated by severe labial hematoma requiring clot evacuation and drain placement in the OR overnight. Dr. Van performed her surgery and has been in contact with the [facility] regarding next steps in care. Transfer was discussed though not yet confirmed. She remains stable today. Plan day: 1 Time Spent With Patient Time: Total time spent is greater than 50% in coordination of care (as documented) at patient's floor/unit and/or counseling patient: Time with patient: 15-24 minutes
[2022-05-21] MEDS: DOCUSATE 100 MG CAPSULE PO ×2 (11:47→21:44)
--- NOTE | 2022-05-21 14:26 | PM.PNPO.1 ---
Subjective Subjective Date Patient Seen: 05/21/22 Time Patient Seen: 14:26 Interval history: Postop day # 1 status post evacuation of vulvar hematoma and placement Mendez balloon for tamponade. Patient's hematocrit has been stable since last evening. She did receive 2 units of packed red blood cells during the surgery. Patient is feeling much better. Not feeling lightheaded or dizzy. is going well. Feels mostly achy on her right vulva. Exam Vital Signs (past 8 hours): Oxygen Delivery Method Room Air Narrative Exam Narrative: Generally: Patient reclined in bed, no acute distress Vulva: Significantly decreased swelling of the right vulva. Nylon suture still in place. No bleeding noted. Mendez catheter in place. Objective Labs Result Diagrams: 05/21/22 09:55 Labs: Laboratory Results - last 24 hr 05/19/22 05/20/22 05/21/22 16:44 23:45 00:53 WBC 14.0 H RBC 3.89 L Hgb 10.4 L Hct 31.1 L MCV 80.0 MCH 26.7 MCHC 33.4 RDW 15.4 H Plt Count 173 Neut % (Auto) 76.6 H Lymph % (Auto) 16.6 L [place] % (Auto) 6.3 Eos % (Auto) 0.1 L Baso % (Auto) 0.4 Neut # (Auto) 25711 H Lymph # (Auto) 2300 [place] # (Auto) 900 Eos # (Auto) 0 Baso # (Auto) 100 PT 11.3 INR 1.0 Fibrinogen 378 Blood Type A Positive Antibody Screen Negative Crossmatch See Detail 05/21/22 05/21/22 05:10 09:55 WBC 12.9 H RBC 3.59 L Hgb 10.3 L 9.8 L Hct 30.9 L 29.3 L MCV 81.5 MCH 27.3 MCHC 33.5 RDW 15.7 H Plt Count 159 Neut % (Auto) 73.7 Lymph % (Auto) 21.1 L [place] % (Auto) 4.5 Eos % (Auto) 0.2 L Baso % (Auto) 0.5 Neut # (Auto) 9500 H Lymph # (Auto) 2700 [place] # (Auto) 600 Eos # (Auto) 0 Baso # (Auto) 100 PT INR Fibrinogen Blood Type Antibody Screen Crossmatch PFSH Medical History Nystagmus Family History Father Fatty liver Grandfather Leukemia Melanoma Social History marital status: number of children: 0 household members: spouse lives independently: Yes housing: house pets and animals: Yes (dogs, aware of Toxoplasmosisi) education level: college occupational status: employed current occupational exposures/hazards: No special rylan needs: No seatbelt use: always water heater temp set < 120 deg: Yes working smoke detector in home: Yes fire extinguisher in home: Yes carbon monox detector in home: Yes firearms in home: No do you feel safe at home: Yes Smoking Status: Never smoker second hand exposure: No alcohol intake: former substance use type: does not use during the past year weight has: remained stable well-balanced diet: daily or most days daily servings fruits/ve-4 caffeine: No Type(s) of exercise: walking, regular exercise and weight lifting frequency: 3-4 times per week Assessment & Plan Post-op Postoperative Procedures: Procedures Operation Date: 05/21/22 01:30 Actual Procedure Side Surgeon p with ligation of bleeding and placement of drain Amber Van MD Postoperative day: 1 Postoperative status: doing well Postoperative status narrative: Pumping before feeding to bring nipples out Will change to memory foam bed with airflow Plan is to slowly decrease the balloon in the wound starting early Monday morning. We will then take patient to the operating room to remove the sutures and irrigate and then packed the wound Time Spent With Patient Time with patient: Greater than 35 minutes
[2022-05-22] MEDS: ACETAMINOPHEN 325 MG TABLET 650 MG PO ×4 (02:47→19:55)
[2022-05-22] MEDS: OXYCODONE IR 5 MG TABLET PO ×2 (06:44→14:21)
[2022-05-22 07:59] LABS: Add Manual Diff / Slide Review NO; Basophils Absolute Auto 0 /uL (0-100); Basophils Percent Auto 0.3 % (0-2); Eosinophils Absolute Auto 0 /uL (0-450); Eosinophils Percent Auto 0.4 % (2-4); Hematocrit 26.1 % (36-46); Hemoglobin 8.8 g/dL (12.0-16.0); Lymphocytes Absolute Auto 2200 /uL (1100-4500); Lymphocytes Percent Auto 22.2 % (25-40); Mean Corpuscular HGB Conc 33.8 % (30-36); Mean Corpuscular Hemoglobin 27.4 PG (26-34); Mean Corpuscular Volume 81.1 fL (80-100); Monocytes Absolute Auto 400 /uL (0-900); Monocytes Percent Auto 4.1 % (3-14); Neutrophils Absolute Auto 7400 /uL (1500-7000); Platelet Count 125 X10^3/uL (150-400); Red Blood Cell Count 3.22 X10^6/uL (4.0-5.2); Red Cell Distribution Width 15.6 % (11.6-14.8); White Blood Cell Count 10.1 X10^3/uL (4.5-11.0)
[2022-05-22] MEDS: PRENATAL VIT,CALC/IRON/FOLIC 1 TABLET 1 TAB PO (08:16)
[2022-05-22 08:17] VITALS: TEMP 36.5
[2022-05-22] MEDS: DOCUSATE 100 MG CAPSULE PO (08:18)
--- NOTE | 2022-05-22 10:25 | PM.OBPN.1 ---
Subjective - OB Subjective baby status: doing well and nursing well feeding status: exclusively breast feeding Date Patient Seen: 05/22/22 Time Patient Seen: 10:00 Interval history: Patient denies complaints this morning. She is sore in her vulvar area but managing well with medication. She is tolerating a diet and passing flatus. is going well in her . Exam Vital Signs (past 8 hours): - 05/22/22 08:17 Temperature 97.7 F Oxygen Delivery Method Room Air Narrative Exam Narrative: Temperature 97.3? blood pressure 114/62 heart rate 84 respirations 16 General: Doing comfortably in bed, no distress HEENT: NCAT, EOMI, moist oral mucosa CV: Regular rate and rhythm Lungs: CTAB, no wheezes, rales, or rhonchi Abdomen: Soft, nontender; bowel tones active; uterus firm 1 cm below umbilicus :? Edema of labia bilaterally with ecchymosis on the right labia. Labia drain place with minimal drainage.? Mendez catheter place. Extremities: Warm, no edema bilaterally Objective Labs Result Diagrams: 05/22/22 07:40 Labs: Laboratory Results - last 24 hr 05/22/22 07:40 WBC 10.1 RBC 3.22 L Hgb 8.8 L Hct 26.1 L MCV 81.1 MCH 27.4 MCHC 33.8 RDW 15.6 H Plt Count 125 L Neut % (Auto) 73.0 Lymph % (Auto) 22.2 L [place] % (Auto) 4.1 Eos % (Auto) 0.4 L Baso % (Auto) 0.3 Neut # (Auto) 7400 H Lymph # (Auto) 2200 [place] # (Auto) 400 Eos # (Auto) 0 Baso # (Auto) 0 Assessment & Plan Assessment and Plan (1) Hematoma of labia majora: Status: Acute (2) 39 weeks gestation of : Status: Acute (3) Spontaneous vaginal delivery: Status: Acute Plan day: 2 plan OB: routine care Comments: Patient remains stable today and pain well controlled. Reviewed the plan with her to stay in the hospital for several more days treatment of the labial hematoma and subsequent wound. After speaking with Dr. Van yesterday, the plan is to take patient back to the OR tomorrow to washout the labial wound and pack it. She will need daily dressing changes in the hospital then an outpatient plan with wound care and the [facility]. Discussed with patient that it will take quite some time to heal and close. She voiced her understanding. Time Spent With Patient Time: Total time spent is greater than 50% in coordination of care (as documented) at patient's floor/unit and/or counseling patient: Time with patient: 15-24 minutes
--- NOTE | 2022-05-22 11:57 | PM.PNPO.1 ---
Subjective Subjective Date Patient Seen: 05/22/22 Time Patient Seen: 11:57 Interval history: Patient is a 26-year-old 1 para 1 postop day # 1-2 status post evacuation of vulvar hematoma and placement of Mendez bulb for tamponade in the wound. Patient has had 7.5 cc of serosanguineous fluid out in the grenade. Pain is well controlled. Exam Vital Signs (past 8 hours): - 05/22/22 08:17 Temperature 97.7 F Oxygen Delivery Method Room Air Narrative Exam Narrative: Generally: Patient is sitting up in bed, no acute distress Vulva: The right labia minora and majora are ecchymotic. Still soft to palpation. Tender on touch. No bleeding coming from the wound. Objective Labs Result Diagrams: 05/22/22 07:40 Labs: Laboratory Results - last 24 hr 05/22/22 07:40 WBC 10.1 RBC 3.22 L Hgb 8.8 L Hct 26.1 L MCV 81.1 MCH 27.4 MCHC 33.8 RDW 15.6 H Plt Count 125 L Neut % (Auto) 73.0 Lymph % (Auto) 22.2 L Dougherty % (Auto) 4.1 Eos % (Auto) 0.4 L Baso % (Auto) 0.3 Neut # (Auto) 7400 H Lymph # (Auto) 2200 Dougherty # (Auto) 400 Eos # (Auto) 0 Baso # (Auto) 0 PFSH Medical History Nystagmus Family History Father Fatty liver Grandfather Leukemia Melanoma Social History marital status: number of children: 0 household members: spouse lives independently: Yes housing: house pets and animals: Yes (dogs, aware of Toxoplasmosisi) education level: college occupational status: employed current occupational exposures/hazards: No special rylan needs: No seatbelt use: always water heater temp set < 120 deg: Yes working smoke detector in home: Yes fire extinguisher in home: Yes carbon monox detector in home: Yes firearms in home: No do you feel safe at home: Yes Smoking Status: Never smoker second hand exposure: No alcohol intake: former substance use type: does not use during the past year weight has: remained stable well-balanced diet: daily or most days daily servings fruits/ve-4 caffeine: No Type(s) of exercise: walking, regular exercise and weight lifting frequency: 3-4 times per week Assessment & Plan Post-op Postoperative Procedures: Procedures Operation Date: 05/21/22 01:30 Actual Procedure Side Surgeon p with ligation of bleeding and placement of drain Amber Van MD Postoperative day: 2 Postoperative status: doing well Postoperative status narrative: No increase in size of the right vulva Postoperative plan: see orders Postoperative plan narrative: NPO after 4:00 a.m. Clear liquids until 9:00 a.m. Back to surgery tomorrow morning around noon to remove the Mendez bulb from the wound and the stitches and then irrigate and packed the wound The risks, benefits, and alternatives to the procedure were explained to the patient. The risks including bleeding and infection. The patient understands these risks and agrees to proceed. A full par Q was held and consent form was signed. Time Spent With Patient Time with patient: 15-24 minutes
[2022-05-22 14:22] VITALS: TEMP 36.8
[2022-05-22 14:50] VITALS: TEMP 36.3
[2022-05-23] MEDS: ACETAMINOPHEN 325 MG TABLET 650 MG PO ×3 (04:07→21:50)
--- NOTE | 2022-05-23 10:19 | PM.OBPN.1 ---
Subjective - OB Subjective Date Patient Seen: 05/23/22 Time Patient Seen: 09:10 Interval history: Patient is doing well this morning. She is understandably sore but pain controlled medication. She has been flatus. is going well without concerns in the . Exam Vital Signs (past 8 hours): Oxygen Delivery Method Room Air Temperature 97.5? blood pressure 115/79 heart rate 68 respirations 18 Narrative Exam Narrative: General:? Sitting up in bed, comfortable HEENT: NCAT, EOMI, moist oral mucosa CV: Regular rate and rhythm Lungs: CTAB, no wheezes, rales, or rhonchi Abdomen: Soft, nontender; bowel tones active; uterus firm 1 cm below umbilicus :? Edema of labia bilaterally with ecchymosis on the right labia.? Extremities: Warm, no edema bilaterally Objective Labs Result Diagrams: 05/22/22 07:40 Assessment & Plan Assessment and Plan (1) Hematoma of labia majora: Status: Acute (2) 39 weeks gestation of : Status: Acute (3) Spontaneous vaginal delivery: Status: Acute Plan day: 3 Comments: Back to the OR today with Dr. Van to remove the Mendez bulb in the wound, wash it out and pack it. Plan pending OR evaluation of the wound. Time Spent With Patient Time: Total time spent is greater than 50% in coordination of care (as documented) at patient's floor/unit and/or counseling patient: Time with patient: less than 15 minutes
--- NOTE | 2022-05-23 12:53 | PM.PREOP ---
Pre-operative Note COVID-19 COVID-19 status: Negative Result date/Date tested (Pos, Neg/Pending): 05/18/22 Criteria for continued procedure: Non-surgical alternatives not available or appropriate per current SOC Interval Note History & Physical reviewed/Exam performed by Physician: Yes Changes to H&P: No H&P completed within 30 days and has changed as indicated here:: 05/19/22
[2022-05-23 13:30] LABS: COVID19 -Nasal RAPID Negative (Negative)
--- NOTE | 2022-05-23 14:02 | SUR.OPER ---
Lithotomy on padded OR bed, head on pillow, arms secured on padded arm boards at <90 degrees abduction. Legs secured in padded yellow fins stirrups.
[2022-05-23] MEDS: CEFAZOLIN VIAL 3 GM in SODIUM CHLORIDE 0.9% 100 ML IV (14:10)
[2022-05-23 14:34] VITALS: BP 142/95; PULSE 79; RESP 17; TEMP 36.6; O2SAT 98
[2022-05-23 14:39] VITALS: BP 145/95; PULSE 84; RESP 14; O2SAT 98
[2022-05-23 14:44] VITALS: BP 150/96; PULSE 78; RESP 16; O2SAT 98
--- NOTE | 2022-05-23 14:46 | SUR.OPER ---
30mL schwartz balloon catheter acting as a drain was removed from vulvar abscess incision intraoperatively.
[2022-05-23 14:49] VITALS: BP 142/94; PULSE 79; RESP 17; O2SAT 98
[2022-05-23] MEDS: OXYCODONE IR 5 MG TABLET PO (14:55)
[2022-05-23 14:59] VITALS: BP 143/92; PULSE 77; RESP 15; TEMP 36.5; O2SAT 99
[2022-05-23] MEDS: DOCUSATE 100 MG CAPSULE PO ×2 (15:33→21:50)
[2022-05-23 23:45] VITALS: BP 131/77; PULSE 88; RESP 16; TEMP 36.5; O2SAT 100
[2022-05-24] VITALS (8 sets, daily range): BP systolic 114–131; BP diastolic 77–92; PULSE 81–98; RESP 16–28; TEMP 36.4–36.6; O2SAT 94–97
[2022-05-24] MEDS: ACETAMINOPHEN 325 MG TABLET 650 MG PO ×2 (06:47→22:01)
[2022-05-24] MEDS: DOCUSATE 100 MG CAPSULE PO ×2 (09:00→22:01)
[2022-05-24] MEDS: OXYCODONE IR 5 MG TABLET PO (09:00)
--- NOTE | 2022-05-24 12:42 | PM.PREOP ---
Pre-operative Note COVID-19 COVID-19 status: Negative Result date/Date tested (Pos, Neg/Pending): 05/23/22 Criteria for continued procedure: Delay expected to result in less-positive ultimate med/surg outcome Interval Note History & Physical reviewed/Exam performed by Physician: Yes Changes to H&P: No H&P completed within 30 days and has changed as indicated here:: 05/18/22
--- NOTE | 2022-05-24 13:13 | SUR.OPER ---
Lithotomy on padded OR bed, head on pillow, arms secured on padded arm boards at <90 degrees abduction. Legs secured in padded yellow fins stirrups.
--- NOTE | 2022-05-24 13:26 | P.OP_ITS ---
Operative Date/Time/Diagnoses Date of procedure: 05/23/22 Time of procedure: 14:00 Pre-op diagnosis: Right vulvar hematoma Schwartz catheter in the incision Post-op diagnosis: same Procedure & Clinicians Procedure: Procedures Operation Date: 05/21/22 01:30 Actual Procedure Side Surgeon p ligation of bleeding and placement of drain Amber Van MD Operation Date: 05/23/22 12:30 Actual Procedure Side Surgeon p Removal of schwartz in wound, irrigation packing Amber Van MD Operation Date: 05/24/22 11:45 Actual Procedure Side Surgeon p removal of schwartz in wound, irrigation packing Amber Van MD Indications: Right vulvar hematoma with Schwartz catheter in place for tamponade Surgeon: Amber Van Anesthesia Type: General (LMA) Operative Notes Findings: The cavity was significantly closed. On the medial margin the wound there was some necrotic tissue No active bleeding Closure Type: non-primary Specimen(s): none Estimated blood loss (mL): 5 Blood products transfused: none Procedure in detail: After informed consent was obtained, the patient was taken to the operating room where she was placed in the dorsal supine position. After adequate LMA general anesthesia was achieved, she was placed in the dorsal lithotomy position, and prepped and draped in the usual sterile fashion. A time-out was performed. The nylon sutures were removed from the wound. The area was cleaned with Betadine. The Schwartz bulb was removed from the wound cavity. The wound was irrigated with 2 L of sterile saline. A necrotic piece of tissue on the medial portion of the wound was excised using Metzenbaum scissors. The wound was packed with approximately 2-1/2 feet of 1 in Nu Gauze with iodoform. Hemostasis was achieved. Two simple interrupted sutures with Prolene were placed on the wound edges to keep the packing in place. Sponge, lap, and instrument counts were correct x2. The patient tolerated the procedure well, and was taken to PACU in stable condition. Complications: none Post-operative Condition: stable Disposition: PACU Plan for aftercare: To the [facility] after recovery
--- NOTE | 2022-05-24 13:26 | PM.GYNOP.1 ---
Operative Date/Time/Diagnoses Date of procedure: 05/24/22 Time of procedure: 13:26 Pre-op diagnosis: Right vulvar hematoma Packing in place Post-op diagnosis: same Procedure & Clinicians Procedure: Procedures Operation Date: 05/21/22 01:30 Actual Procedure Side Surgeon p ligation of bleeding and placement of drain Amber Van MD Operation Date: 05/23/22 12:30 Actual Procedure Side Surgeon p Removal of schwartz in wound, irrigation packing Amber Van MD Operation Date: 05/24/22 11:45 Actual Procedure Side Surgeon p removal of schwartz in wound, irrigation packing Amber Van MD Indications: Right vulvar hematoma Packing in place Surgeon: Amber Van Anesthesia Type: General (LMA) Operative Notes Findings: No new necrotic tissue of the wound No new bleeding Closure Type: non-primary Specimen(s): none Estimated blood loss (mL): 5 Blood products transfused: none Procedure in detail: After informed consent was obtained, the patient was taken to the operating room where she was placed in the dorsal supine position. After adequate LMA general anesthesia was achieved, she was placed in the dorsal lithotomy position, and prepped and draped in the usual sterile fashion. The previous nylon sutures were removed. There was one area on the medial aspect of the wound that looked a little dusky. The packing was removed. The area was irrigated with 300 cc of sterile saline. 1 in iodoform gauze was repacked into the wound on the right vulva. Two Prolene sutures were placed to keep the packing in place. Sponge, lap, and instrument counts were correct x2. The patient tolerated the procedure well, and was taken to PACU in stable condition. Will recheck the medial aspect of the wound tomorrow. Complications: none Post-operative Condition: stable Disposition: PACU Plan for aftercare: To the [facility] after recovery
[2022-05-25 03:50] VITALS: BP 131/77; PULSE 90; RESP 16; TEMP 36.1
[2022-05-25] MEDS: ACETAMINOPHEN 325 MG TABLET 650 MG PO ×4 (04:08→21:45)
[2022-05-25] MEDS: DOCUSATE 100 MG CAPSULE PO ×2 (09:37→21:46)
--- NOTE | 2022-05-25 16:27 | PM.PREOP ---
Pre-operative Note COVID-19 COVID-19 status: Negative Result date/Date tested (Pos, Neg/Pending): 05/23/22 Criteria for continued procedure: Non-surgical alternatives not available or appropriate per current SOC Interval Note History & Physical reviewed/Exam performed by Physician: Yes Changes to H&P: No H&P completed within 30 days and has changed as indicated here:: 05/18/22
--- NOTE | 2022-05-25 17:01 | SUR.OPER ---
Lithotomy on padded OR bed, head on pillow, arms secured on padded arm boards at <90 degrees abduction. Legs secured in padded yellow fins stirrups.
--- NOTE | 2022-05-25 17:11 | PM.PNPO.1 ---
Subjective Subjective Date Patient Seen: 05/25/22 Time Patient Seen: 15:30 Interval history: Patient is a 26-year-old 1 para 1 5 days status post a spontaneous vaginal delivery and then evacuation of a vulvar hematoma with packing. Patient has Schwartz catheter removed yesterday. She has been able to void. She has had a bowel movement. She is ambulating without assistance. Exam Vital Signs (past 8 hours): Oxygen Delivery Method Room Air Narrative Exam Narrative: Generally: Patient is sitting up in bed, nursing infant, no acute distress Vulva: Some ecchymosis. Objective Labs Result Diagrams: 05/22/22 07:40 [facility] Medical History Nystagmus Family History Father Fatty liver Grandfather Leukemia Melanoma Social History marital status: number of children: 0 household members: spouse lives independently: Yes housing: house pets and animals: Yes (dogs, aware of Toxoplasmosisi) education level: college occupational status: employed current occupational exposures/hazards: No special rylan needs: No seatbelt use: always water heater temp set < 120 deg: Yes working smoke detector in home: Yes fire extinguisher in home: Yes carbon monox detector in home: Yes firearms in home: No do you feel safe at home: Yes Smoking Status: Never smoker second hand exposure: No alcohol intake: former substance use type: does not use during the past year weight has: remained stable well-balanced diet: daily or most days daily servings fruits/ve-4 caffeine: No Type(s) of exercise: walking, regular exercise and weight lifting frequency: 3-4 times per week Assessment & Plan Post-op Postoperative Procedures: Procedures Operation Date: 05/21/22 01:30 Actual Procedure Side Surgeon p ligation of bleeding and placement of drain Amber Van MD Operation Date: 05/23/22 12:30 Actual Procedure Side Surgeon p Removal of schwartz in wound, irrigation packing Amber Van MD Operation Date: 05/24/22 11:45 Actual Procedure Side Surgeon p removal of schwartz in wound, irrigation packing Amber Van MD Operation Date: 05/25/22 15:45 <No data on this case meets the specified criteria> Postoperative day: 4 Postoperative status: doing well Postoperative plan narrative: Back to operating room for removal of packing, irrigation, and repacking Time Spent With Patient Time with patient: less than 15 minutes
--- NOTE | 2022-05-25 17:13 | PM.GYNOP.1 ---
Operative Date/Time/Diagnoses Date of procedure: 05/25/22 Time of procedure: 17:13 Pre-op diagnosis: Vulvar hematoma Packing in the wound Post-op diagnosis: same Procedure & Clinicians Procedure: Procedures Operation Date: 05/21/22 01:30 Actual Procedure Side Surgeon p ligation of bleeding and placement of drain Amber Van MD Operation Date: 05/23/22 12:30 Actual Procedure Side Surgeon p Removal of schwartz in wound, irrigation packing Amber Van MD Operation Date: 05/24/22 11:45 Actual Procedure Side Surgeon p removal of schwartz in wound, irrigation packing Amber Van MD Operation Date: 05/25/22 15:45 <No data on this case meets the specified criteria> Indications: Vulvar hematoma Packing in the wound Surgeon: Amber Van Anesthesia Type: General (LMA) Operative Notes Findings: Wound is granulating in well No necrotic tissue seen Closure Type: not applicable Estimated blood loss (mL): 0 Blood products transfused: none Procedure in detail: After informed consent was obtained, the patient was taken to the operating room where she was placed in the dorsal supine position. After adequate LMA general anesthesia was achieved, she was placed in the dorsal lithotomy position, and prepped and draped in the usual sterile fashion. The 2 Prolene sutures that were holding the packing in place were removed. The packing was removed. The wound was pink and granulating well. There was no necrotic tissue visualized. The area was irrigated with 400 cc of sterile saline. Pictures of the wound were taken. The wound was packed with 1 in iodoform gauze. A sterile 4 x 4 was placed over the wound. Complications: none Post-operative Condition: stable Disposition: PACU Plan for aftercare: To the [facility] after recovery
[2022-05-25 17:20] VITALS: BP 132/89; PULSE 85; RESP 11; TEMP 36.2; O2SAT 97
[2022-05-25 17:25] VITALS: BP 133/88; PULSE 80; RESP 11; O2SAT 97
[2022-05-25 17:30] VITALS: BP 146/88; PULSE 80; RESP 11; O2SAT 97
[2022-05-25] MEDS: LACTATED RINGERS 1,000 ML 42 ML IV (17:34)
[2022-05-25 17:48] LABS: Appearance Urine UA CLEAR; Bilirubin Urine UA NEGATIVE (NEGATIVE); Color Urine UA YELLOW; Glucose Urine UA NEGATIVE (Negative); Ketones Urine UA NEGATIVE (NEGATIVE); Leukocyte Esterase Urine UA TRACE (NEGATIVE); Nitrite Urine UA NEGATIVE (Negative); Occult Blood Urine UA NEGATIVE (Negative); Protein Urine UA NEGATIVE (Negative); Urobilinogen Urine UA 0.2 E.U./dL (0.2)
[2022-05-25 18:03] LABS: Bacteria Urine None Seen; Culture Indicated Urine Cult Not Indicated; RBC Urine None Seen (0-5/HPF); Squamous Epithelial Cell Urine 0-1 /HPF (0-5/HPF); WBC Urine 0-1/HPF (0-5/HPF)
[2022-05-26] MEDS: ACETAMINOPHEN 325 MG TABLET 650 MG PO ×2 (03:45→10:51)
[2022-05-26] MEDS: DOCUSATE 100 MG CAPSULE PO (08:35)
[2022-05-26] MEDS: PRENATAL VIT,CALC/IRON/FOLIC 1 TABLET 1 TAB PO (08:35)
[2022-05-26] MEDS: OXYCODONE IR 5 MG TABLET PO (11:42)
[2022-05-26] MEDS: MEASLES,MUMPS,RUBELLA VACC/PF 0.5 ML VIAL SUBCUT (14:20)
--- NOTE | 2022-05-29 19:00 | PM.OBDS.1 ---
Discharge Providers Provider Date of admission: 05/19/22 12:05 Discharge Date: 05/26/22 Primary care physician: MILTON Levi Consults: 05/21/22 18:33 Consult to Sports Development Officer Routine Comment: 05/22/22 02:32 Consult to Sports Development Officer Routine Comment: 05/26/22 13:16 Consult to Home Health Routine Comment: Wound care and sterile packing - vaginal surgical Reason For Exam: Home Health: for RN 2-3 times a week, marie/ Discharge provider: Amber Van MD Summary Hospital Course Date Patient Seen: 05/26/22 Time Patient Seen: 09:30 Diagnoses: 39-4/7 weeks gestation Mild preeclampsia Cervidil cervical ripening Pitocin induction of labor Spontaneous vaginal delivery First-degree perineal laceration and repair Spontaneous hematoma of the right vulva Evacuation of hematoma Packing, irrigation, re packing of right vulvar wound Hospital Course: Patient is a 26-year-old 1 para 1 who presented on May 19, 2022 for cervical ripening. She received Cervidil x1. On the morning of May 20, 2022 she was started on Pitocin. Her cervix was favorable and she was 3 cm dilated. She progressed to complete dilation and pushed twice and had a spontaneous vaginal delivery without complication. 5 hours after delivery she had some dizziness. She was found to have a large right vulvar hematoma. She was taken to the operating room where the skin of the vulva was found to be open and a 10 cm wound was present. The hematoma was evacuated. Pressure was placed for hemostasis. A 30 cc Mendez bulb was placed into the wound and 20 cc of injectable saline were placed into the bulb. Several sutures were placed on the vulvar skin to hold the bulb in place. On May 23, 2022 she was taken back to the operating room where the stitches were removed, the Menedz bulb was removed, the area was irrigated and then packed with 1 in iodoform gauze. On 05/24 she was taken back to the operating room where the packing was removed, the wound was irrigated and repacked with iodoform gauze. On 05/25 she was taken back to the operating room where the packing was removed, the wound was irrigated, and the wound was repacked. Her was present to see if he may be able to do the packing changes at home. On May 26, 2022 at the bedside, the patient's was able to remove the packing, and repack the wound. Home health was consulted and plan to visit the patient 2 times a week at home. The patient was discharged home on May 26, 2022. She was to follow-up on May 30, 2022 in the office for a wound check. Peripartum Data Infant Delivery Method: Natural Vaginal Laceration Description: Perineal - 1st Degree Episiotomy description: None Procedures: Cervidil cervical ripening Pitocin induction of labor Artificial rupture of membranes Spontaneous vaginal delivery First-degree perineal laceration repair Evacuation of right vulvar hematoma Transfusion of 2 units of packed red blood cells Placement of Mendez bulb in the wound Removal of Mendez bulb from the wound Irrigation and packing of the wound x 3 days complications: hematoma (Right labia minora) and transfusion (x 2 units) Maupin 1: Gender: Female Disposition of : home Discharge Diagnosis (1) Hematoma of labia majora: Status: Acute (2) 39 weeks gestation of : Status: Acute (3) Spontaneous vaginal delivery: Status: Acute Status at Discharge Cognitive/behavioral status at discharge: oriented Functional status at discharge: independent ambulation Overall status at discharge: patient is progressing back to baseline Time Spent with Patient Time attestation: Total time spent providing and/or coordinating discharge services: Time spent: Greater than 30 minutes Objective Labs Result Diagrams: 05/22/22 07:40 Exam Vital Signs (past 8 hours): Oxygen Delivery Method Room Air Narrative Exam Narrative: Generally: Patient lying in bed, no acute distress Fundus: Firm at U -3 Vulva: The right vulva as packing in place. There is a small amount of ecchymosis. No erythema. No foul-smelling drainage. Extremities: 1+ edema, negative Homans Discharge Plan Discharge Plan Patient Disposition: Home Provider Discharge Comment: Tylenol 650 mg every 6 hours as needed Ibuprofen 600 mg every 6 hours as needed Stool softeners daily Discharge orders & Medications Prescriptions: New oxycodone 5 mg tablet 5 mg PO Q4H PRN (Reason: pain) Qty: 20 0RF Continued prenat.vits,raya,[id number] Tablet 1 tab PO DAILY No Action (DME) double electric breast pump and supplies See Rx Instructions .ROUTE .MEDSUPPLY Qty: 1 0RF Rx Instructions: Use daily as needed for milk supply Follow up/Referrals: Benita Nickerson DO [Physician] - 6 Weeks ( appointment on Thursday, July 05 at 9:00 am. Appointment with on May 30 at 10:30 for incision check) Diet/Activity/Treatments Diet: Regular Activity: Nothing in the vagina for at least 6 weeks Skin/Wound/Dressing Care Report to your healthcare provider any signs of infection, such as:: chills, fever, increased pain, unusual drainage and unusual redness Dressing: Packing changes daily, wet to dry Visit Report/Discharge Packet Instructions: DI for Labor and Delivery, Vaginal , DI for Prescription Opioid Use, DI for Incision and Drainage Stand Alone Forms: Surgery Discharge Discharge Data Primary Care Provider: Jeimy Browne
== END 2022-05-26 16:26 | disposition home or self-care (01) | DRG 768 ==
PROVIDERS: Obstetrics & Gynecology; Admitting Provider Family Medicine; PCP Nurse Practitioner Family; Referring Provider Family Medicine; Visit Provider Family Medicine
PROC: 0W3R0ZZ Control Bleeding in Genitourinary Tract, Open Approach (ICD-10-PCS; CPT 58120; principal; 2022-05-21 01:30)
PROC: 0UP Female Reproductive System, Removal (ICD-10-PCS; CPT 58120; principal; 2022-05-23 12:30)
PROC: 3E10X8Z Irrigation of Skin and Mucous Membranes using Irrigating Substance (ICD-10-PCS; CPT 58120; principal; 2022-05-24 11:45)
DX: O13.4 Gestational [pregnancy-induced] hypertension without significant proteinuria, complicating childbirth (principal); Z37.0 Single live birth; D62 Acute posthemorrhagic anemia; O40.3XX0 Polyhydramnios, third trimester, not applicable or unspecified; Z3A.39 39 weeks gestation of pregnancy; O90.81 Anemia of the puerperium; O70.1 Second degree perineal laceration during delivery; O90.2 Hematoma of obstetric wound; O14.04 Mild to moderate pre-eclampsia, complicating childbirth; Z20.822 Contact with and (suspected) exposure to COVID-19
CPT/HCPCS: 36415; 36430; 57022; 59050; 59200; 59400; 81001; 85014; 85018; 85025; 85384; 85610; 86850; 86900; 86901; 87635; C9803; P9016; G0379; J0330; J0690; J1100; J2250; J2405; J2590; J2704; J3010

== ENCOUNTER → 2022-06-04 11:27 | Outpatient (CLI) | payer OTHER, SELFPAY ==
[2022-06-04 12:22] LABS: Add Manual Diff / Slide Review NO; Basophils Absolute Auto 100 /uL (0-100); Basophils Percent Auto 0.8 % (0-2); Eosinophils Absolute Auto 100 /uL (0-450); Eosinophils Percent Auto 1.4 % (2-4); Hemoglobin 11.1 g/dL (12.0-16.0); Lymphocytes Absolute Auto 2600 /uL (1100-4500); Lymphocytes Percent Auto 34.2 % (25-40); Mean Corpuscular HGB Conc 33.5 % (30-36); Mean Corpuscular Hemoglobin 26.6 PG (26-34); Mean Corpuscular Volume 79.4 fL (80-100); Monocytes Absolute Auto 400 /uL (0-900); Monocytes Percent Auto 5.3 % (3-14); Neutrophils Absolute Auto 4400 /uL (1500-7000); Neutrophils Percent Auto 58.3 % (50-75); Platelet Count 382 X10^3/uL (150-400); Red Blood Cell Count 4.16 X10^6/uL (4.0-5.2); Red Cell Distribution Width 15.1 % (11.6-14.8); White Blood Cell Count 7.5 X10^3/uL (4.5-11.0)
[2022-06-04 12:34] LABS: Alanine Aminotransferase 29 IU/L (<35); Albumin Globulin Ratio 1.2 (1.0-2.8); Alkaline Phosphatase 93 U/L (38-126); Aspartate Aminotransferase 26 IU/L (14-36); Bilirubin Total 0.3 mg/dL (0.2-1.3); Blood Urea Nitrogen 13 mg/dL (7-17); Calcium 9.2 mg/dL (8.4-10.2); Carbon Dioxide 24 mmol/L (22-32); Chloride 104 mmol/L (98-107); Estimated Glomerular Filt Rate > 60 mL/min (>60); Globulin 3.4 g/dL (1.7-4.1); Glucose 94 mg/dL (70-100); HEMOLYSIS < 15 (0-50); Potassium 4.3 mmol/L (3.4-5.1); Sodium 137 mmol/L (137-145); Total Protein 7.4 g/dL (6.3-8.2)
[2022-06-04 14:43] LABS: Creatinine Urine Random 84.6 mg/dL; Protein (Total) Urine Random 31 mg/dL (0-12); Protein Creatinine Ratio Urine 0.36 GRAM/24H
== END ==
PROVIDERS: PCP Nurse Practitioner Family; Referring Provider Family Medicine; Visit Provider Family Medicine
DX: O90.89 Other complications of the puerperium, not elsewhere classified (principal); R03.0 Elevated blood-pressure reading, without diagnosis of hypertension; R51.9 Headache, unspecified
CPT/HCPCS: 36415; 80053; 82570; 84156; 85025

== ENCOUNTER → 2025-05-02 15:13 | Outpatient (CLI) | payer BC, SELFPAY ==
[2025-05-02 16:17] LABS: Add Manual Diff / Slide Review NO; Hematocrit 37.4 % (36-46); Hemoglobin 12.6 g/dL (12.0-16.0); Lymphocytes Absolute Auto 2100 /uL (1100-4500); Mean Corpuscular HGB Conc 33.6 % (30-36); Mean Corpuscular Hemoglobin 26.3 PG (26-34); Mean Corpuscular Volume 78.3 fL (80-100); Platelet Count 252 X10^3/uL (150-400)
[2025-05-02 16:27] LABS: Hemoglobin A1C% w Est Avg Glu 5.4 % (4.0-6.0)
[2025-05-02 16:47] LABS: Alanine Aminotransferase 36 IU/L (<35); Blood Urea Nitrogen 9 mg/dL (7-17); Estimated Glomerular Filt Rate > 60 mL/min (>60); Uric Acid 3.4 mg/dL (2.5-6.2)
[2025-05-03 18:11] LABS: Hepatitis B Surface Antigen NEGATIVE s/c (NEGATIVE)
[2025-05-03 18:25] LABS: HIV 1 & 2 Ab/Ag 4th Gen Combo NEGATIVE (NEGATIVE); Hep C Virus Ab w/Reflex Quant NEGATIVE s/c (NEGATIVE)
== END ==
PROVIDERS: PCP Nurse Practitioner Family; Referring Provider Obstetrics & Gynecology; Visit Provider Obstetrics & Gynecology
DX: O09.899 Supervision of other high risk pregnancies, unspecified trimester (principal)
CPT/HCPCS: 36415; 80055; 82565; 83036; 84450; 84460; 84520; 84550; 86787; 86803; 86850; 86900; 86901; 87389

== ENCOUNTER → 2025-05-30 11:47 | Outpatient (CLI) | payer BC, SELFPAY ==
[2025-05-30 13:00] LABS: Natera Collection Specimen Collected
== END ==
PROVIDERS: PCP Nurse Practitioner Family; Referring Provider Obstetrics & Gynecology; Visit Provider Obstetrics & Gynecology
DX: Z36.0 Encounter for antenatal screening for chromosomal anomalies (principal)
CPT/HCPCS: 36415

== ENCOUNTER → 2025-06-25 11:03 | Outpatient (CLI) | payer BC, SELFPAY ==
[2025-06-30 13:36] LABS: Gest Age on Col Date 15.9 weeks (.); OSBR Risk 1IN 10000 (.)
== END ==
PROVIDERS: PCP Nurse Practitioner Family; Referring Provider Obstetrics & Gynecology; Visit Provider Obstetrics & Gynecology
DX: Z36.0 Encounter for antenatal screening for chromosomal anomalies (principal)
CPT/HCPCS: 36415; 82105

== ENCOUNTER → 2025-07-30 13:48 | Outpatient (CLI) | payer BC, SELFPAY ==
--- NOTE | 2025-07-30 13:49 | DI.US.S_ITS ---
PROCEDURE: US OB >= 14 WEEKS FETUS INDICATIONS: ANATOMY OUTSIDE/PRIOR DATING DATA: Last menstrual period (LMP): March 06, 2025. LMP-based estimated date of delivery (JOSEPHINE): December 11, 2025. First dating scan (date and location): May 02, 2025. Estimated date of delivery (JOSEPHINE) from first dating scan: December 14, 2025. The calculations are made using the LMP JOSEPHINE of December 11, 2025. TECHNIQUE: Real-time scanning was performed of the fetus, with image documentation and biometric measurements. Endovaginal scanning: Not performed COMPARISON: [facility], , OB <= 14 WEEKS FETUS, 05/02/2025, 15:05. [facility], OB >= 14 WEEKS FETUS, 01/03/2022, 16:23 FINDINGS: General: A single living intrauterine gestation is present. Presentation: Breech Placenta: Placental position is anterior , without previa. Amniotic fluid index: 16.7 cm, normal range is 5-24 cm. Single deepest vertical pocket is 5.6 cm. heart rate: 162 beats per minute. Maternal cervical canal: 6.6 cm long. Normal lower limit is 2.5 cm. biometrics: Biparietal diameter: 4.9 cm, 20 weeks and 5 days Head circumference: 17.9 cm, 20 weeks and 3 days Abdominal circumference: 15.8 cm, 21 weeks and 0 days Femur length: 3.2 cm, 19 weeks and 6 days Clinically estimated gestational age: 20 weeks and 6 days Composite gestational age from present scan: 20 weeks and 4 days Estimated weight and percentile: Approximately 355 g which correlates with the 25th percentile for gestational age Anatomic survey: Neuro: Ventricles are non-dilated at less than 10 mm. Cisterna magna is normal at 3-11 mm. Cerebellum is normal in size and morphology. Nuchal skin fold: Normal at less than 6 mm between 14-21 weeks gestational age. Face: Nose and lips, facial profile are normal. Spine: No evidence for spina bifida. Heart: 4-chambered heart is present, with normal ventricular outflow tracts. Diaphragm: Diaphragm is intact. Stomach: Left-sided stomach is present. Kidneys: No hydronephrosis. Normal is less than 5 mm in 2nd trimester, less than 7 mm in 3rd trimester. Cord: 3-vessel cord has orthotopic insertion. Probable single wrap nuchal cord. Bladder: Normal in size. Extremities: All 4 extremities identified. IMPRESSION: Single living intrauterine gestation with estimated sonographic gestational age of approximately 20 weeks and 4 days with estimated weight of approximately 355 g which correlates with the 25th percentile for gestational age. Expected interval growth has occurred Probable single wrap nuchal cord visualized. Otherwise, unremarkable routine second-trimester anatomy screening survey. We strive to produce accurate, complete, and clear reports of imaging services. To assist us in improving patient care, this report was composed using standard report templates and voice recognition software. Therefore, it may contain abnormal punctuation, insertions and/or omissions. Occasional wrong-word or sound-alike substitutions may occur. Though we review the report and make efforts to correct it, we do recommend that the report be read carefully in proper context to recognize any text inaccuracies. Dictated by: Ajay Napoles M.D. on 08/01/2025 at 12:04 Approved by: Ajay Napoles M.D. on 08/01/2025 at 12:14
== END ==
PROVIDERS: PCP Nurse Practitioner Family; Referring Provider Obstetrics & Gynecology; Visit Provider Obstetrics & Gynecology
DX: Z36.0 Encounter for antenatal screening for chromosomal anomalies (principal); Z34.82 Encounter for supervision of other normal pregnancy, second trimester; Z3A.20 20 weeks gestation of pregnancy
CPT/HCPCS: 76811